=== PATIENT | male | born 1965 | race African-American/Black ===

== ENCOUNTER 2023-11-23 08:00 | Emergency (ER) | payer OTHER, MEDICAID ==
[~2023-11-23] VITALS: Ht 177.8 cm; Wt 69.9 kg
[2023-11-23 09:18] VITALS: BP 113/82; RESP 16; TEMP 97.8; O2SAT 98
[2023-11-23 10:54] VITALS: PULSE 70
[2023-11-23 12:10] LABS: Basophils # (auto) 0 10 ^3/uL (0-0.2); Basophils % (auto) 0.3 % (0.0-2.0); Eosinophils # (auto) 0.1 10 ^3/uL (0-0.8); Eosinophils % (auto) 0.9 % (0.0-7.0); Hematocrit 47.3 % (41.0-53.0); Hemoglobin 15.5 g/dL (13.5-17.5); Lymphocytes # (auto) 1.4 10 ^3/uL (0.4-5.4); Mean Corpuscular Hemoglobin 29.2 pg (28.0-32.0); Mean Corpuscular Hgb Conc. 32.7 g/dL (32.0-36.0); Mean Corpuscular Volume 89.3 fL (80.0-100.0); Monocytes # (auto) 0.6 10 ^3/uL (0-1.3); Monocytes % (auto) 9.2 % (0.0-12.0); Neutrophils # (auto) 4.6 10 ^3/uL (1.6-8.6); Neutrophils % (auto) 68.6 % (37.0-80.0); Nucleated Red Blood Cells % 0.1 %; Red Cell Distribution Width 15.7 % (11.8-14.3); White Blood Cell 6.7 10^3/uL (4.4-10.8)
[2023-11-23 12:12] LABS: Chloride 100 mmol/L (98-107); Potassium 3.7 mmol/L (3.5-5.1); Sodium 136 mmol/L (136-145)
[2023-11-23 12:13] LABS: Anion Gap 7 (5-15); Calcium 9.9 mg/dL (8.5-10.1); Carbon Dioxide 29 mmol/L (20-30); INR 1.01 (0.9-1.15); Prothrombin Time 10.6 sec (9.3-11.8)
[2023-11-23 12:18] LABS: BUN/Creatinine Ratio 6.4 (10.0-20.0); Blood Urea Nitrogen 6 mg/dL (9-23); Glucose 115 mg/dL (74-106)
== END 2023-11-23 16:10 | disposition left against medical advice (07) ==
LOC: ER 08:00
DX: R07.89 Other chest pain (principal); R20.2 Paresthesia of skin; R53.1 Weakness; I10 Essential (primary) hypertension; I25.10 Atherosclerotic heart disease of native coronary artery without angina pectoris; E78.5 Hyperlipidemia, unspecified; G89.29 Other chronic pain; M54.9 Dorsalgia, unspecified
CPT/HCPCS: 36415; 70450; 71045; 80048; 84484; 85025; 85610; 93005

== ENCOUNTER 2024-05-17 10:39 | Emergency (ER) | payer OTHER, MEDICAID ==
[~2024-05-17] VITALS: Ht 177.8 cm; Wt 67.9 kg
[2024-05-17 11:29] VITALS: BP 130/95; PULSE 83; RESP 16; TEMP 98.8; O2SAT 96
[2024-05-17 12:17] LABS: COVID19 ANTIGEN SOFIA FIA POSITIVE (NEGATIVE)
[2024-05-17] MEDS ORDERED: ACET-1304 PO (12:21)
[2024-05-17] MEDS ORDERED: NIRM1TAB7 PO (12:21)
== END 2024-05-17 12:28 | disposition home or self-care (01) ==
LOC: ER 10:39
DX: U07.1 COVID-19 (principal); E78.5 Hyperlipidemia, unspecified; I10 Essential (primary) hypertension; Z88.6 Allergy status to analgesic agent
CPT/HCPCS: 36415; 87426

== ENCOUNTER 2024-05-17 16:01 | Emergency (ER) | payer OTHER, MEDICAID ==
[~2024-05-17] VITALS: Ht 177.8 cm; Wt 75.0 kg
[~2024-05-17 16:01] MED LIST: ACET-1304 PO; NIRM1TAB7 PO
[2024-05-17] MEDS: DexAMETHasone SOD PHOS 10MG/1ML VIAL INJ IM ONE (17:51)
[2024-05-17] MEDS: ONDANSETRON HCL 4 MG/2 ML VIAL IM ONE (17:52)
[2024-05-17 18:49] VITALS: BP 129/77; PULSE 68; RESP 18; TEMP 98.7; O2SAT 100
== END 2024-05-17 18:50 | disposition home or self-care (01) ==
LOC: ER 16:04
DX: R05.9 Cough, unspecified (principal); T50.905A Adverse effect of unspecified drugs, medicaments and biological substances, initial encounter; I25.10 Atherosclerotic heart disease of native coronary artery without angina pectoris; E78.5 Hyperlipidemia, unspecified; I10 Essential (primary) hypertension; Z86.16 Personal history of COVID-19; Z88.5 Allergy status to narcotic agent; Y92.89 Other specified places as the place of occurrence of the external cause
CPT/HCPCS: 96372; 99284; J1100; J2405

== ENCOUNTER 2024-07-02 06:08 | Emergency (ER) | payer OTHER, MEDICAID ==
[~2024-07-02] VITALS: Ht 177.8 cm; Wt 69.7 kg
[2024-07-02 07:48] VITALS: BP 127/88; PULSE 59; RESP 18; TEMP 97.5; O2SAT 99
[2024-07-02] MEDS: BENZOCAINE (DENTAL) 20 % SPRAY 60ML MT ONE (08:09)
[2024-07-02] MEDS ORDERED: IBUP-1454 PO (08:36)
== END 2024-07-02 08:36 | disposition home or self-care (01) ==
LOC: ER 06:08
DX: M70.21 Olecranon bursitis, right elbow (principal); E78.5 Hyperlipidemia, unspecified; I10 Essential (primary) hypertension; Z88.6 Allergy status to analgesic agent